=== PATIENT | female | born 1950 | race Caucasian/White ===

== ENCOUNTER → 2017-11-05 | Outpatient (CLI) | payer MEDICARE ==
[~2017-11-05] VITALS: Ht 162.6 cm; Wt 77.8 kg
[~2017-11-05] MED LIST: ALPR0.5T3 PO; BUPR150T3 PO; DEXTROSE 5%-LACTATED RING INJ 1,000 ML IV SCH; DICY10 PO; DULO1CAP3 PO; KRIL1CAP PO; LACTATED RINGER'S 1000 ML IV PRN; LIDOCAINE HCL 1% PF 5 ML SYRINGE OTHER ONE; LOSA50TA PO; METH500T3 PO; METOPROLOL TARTRATE 25 MG TAB PO PRN; ONABOTULINUMTOXINA INJ 100 UNITS/VIAL ONE; POTA10TA2 PO; PROPOFOL 200 MG/20 ML AMP IV ONE; PROT40TA PO; RANI300T PO; SAPH5SUB3 SL; SIMV20TA PO; SODIUM CHLORID 0.9% 500 ML IV PRN; TOPI50TA7 PO; VENTAER INH; ZOFR4TAB PO
--- NOTE | 2017-11-05 11:07 | GIPROC ---
[facility] [address] [facility]. [facility], [address] EGD PROCEDURE REPORT EXAM DATE: 11/05/2017 PATIENT NAME: Marie Mack MR #: [id number] BIRTHDATE: 1950 ATTENDING: Nydia Shelley MD ORDER #: [id number] PERINATOLOGY PHYSICIAN: Darcie Cruz and Taylor Villagomez STATUS: outpatient INDICATIONS: The patient is a 67 yr old female here for an EGD due to abdominal pain diarrhea gastroparesis nausea PROCEDURE PERFORMED: EGD w/ biopsy EGD w/ directed submucosal injection(s), any substance EGD w/ dilation of esophagus via guidewire MEDICATIONS: None and Per Anesthesia. TOPICAL ANESTHETIC: none CONSENT: The patient understands the risks and benefits of the procedure and understands that these risks include, but are not limited to: sedation, allergic reaction, infection, perforation and/or bleeding. Alternative means of evaluation and treatment include, among others: physical exam, x-rays, and/or surgical intervention. The patient elects to proceed with this endoscopic procedure. medical equipment was checked for proper function. Hand hygiene and appropriate measures for infection prevention was taken. After the risks, benefits and alternatives of the procedure were thoroughly explained, Informed consent was verified, confirmed and timeout was successfully executed by the treatment team. The patient was anesthetized with topical anesthesia and the Pentax EG-[id number] endoscope was introduced through the mouth and advanced to the second portion of the duodenum. Retroflexed views revealed a hiatal hernia The gastroscope was then slowly withdrawn and removed. Duodenum normal-biopsy gastritis antrum-biopsy esophagitis distal esophagus -biopsy stricture distal esophagus -s/p dilatation Savary dilator 16 BOTOX injected 100 units in pyloric channel-25 units in each quadrant. ADVERSE EVENTS: There were no complications. IMPRESSIONS: 1. Duodenum normal-biopsy gastritis antrum-biopsy esophagitis distal esophagus -biopsy stricture distal esophagus -s/p dilatation Savary dilator 16 BOTOX injected 100 units in pyloric channel-25 units in each quadrant 2. Retroflexed views revealed a hiatal hernia RECOMMENDATIONS: 1. Await biopsy results. Biopsy results will not be ready for 7-10 days. If you don't hear from us in two weeks, call our office for biopsy results. 2. Anti-reflux regimen 3. Continue PPI 4. Avoid NSAIDS PATIENT CONDITION: stable DISPOSITION: Home REPEAT EXAM: Return 3 years EGD Nydia Shelley MD eSigned: Nydia Shelley MD 11/05/2017 11:07 AM cc: Lyn Hayes M.D. PATIENT NAME: Martina Marie Asuncion MR#: [id number]
[2017-11-05 12:09] VITALS: BP 157/86; PULSE 76; RESP 20; TEMP 97.5; O2SAT 98
--- NOTE | 2017-11-05 13:40 | EKG ---
Date Performed: 11/05/2017 Time Performed: 09:07:50 PTAGE: 67 years EKG: Sinus rhythm POSSIBLE LEFT ATRIAL ENLARGEMENT LOW QRS VOLTAGE IN PRECORDIAL LEADS BORDERLINE ECG PREVIOUS TRACING : 11/05/2017 08.56 DOCTOR: Dusty Yao Interpretating Date/Time 11/05/2017 13:39:03
== END ==
LOC: HSDC 08:38
PROVIDERS: ATTEND Internal Medicine Gastroenterology
DX: K22.2 Esophageal obstruction (principal); K31.84 Gastroparesis; K44.9 Diaphragmatic hernia without obstruction or gangrene; K29.50 Unspecified chronic gastritis without bleeding; K29.80 Duodenitis without bleeding; I10 Essential (primary) hypertension; J45.909 Unspecified asthma, uncomplicated; R11.0 Nausea
CPT/HCPCS: 00731; 43236; 43239; 43248; 88305; 88312; 93005; C1769; J0585; J7120